=== PATIENT | female | born 1975 | race Caucasian/White ===

== ENCOUNTER 2016-12-23 18:16 | Emergency (ER) | payer OTHER, MEDICAID ==
[2016-12-23 18:23] VITALS: RESP 16
[2016-12-23] MEDS ORDERED: LORazepam 2 MG/ML INJ IVP ONE (18:47)
[2016-12-23] MEDS ORDERED: KETOROLAC 30 MG/1 ML SDV IVP ONE (18:47)
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
[2016-12-23 19:53] VITALS: BP 105/73; PULSE 71; TEMP 98.4; O2SAT 94
== END 2016-12-23 19:50 | disposition home or self-care (01) ==
DX: S16.1XXA Strain of muscle, fascia and tendon at neck level, initial encounter (principal); V49.40XA Driver injured in collision with unspecified motor vehicles in traffic accident, initial encounter; Y92.410 Unspecified street and highway as the place of occurrence of the external cause; Y99.8 Other external cause status; Y93.89 Activity, other specified
CPT/HCPCS: 96374; J1885; J2060

== ENCOUNTER 2017-01-21 17:46 | Emergency (ER) | payer MEDICAID, OTHER ==
--- NOTE | 2017-01-21 18:04 | EDPHY ---
H & P Stated Complaint: FEVER/CHILLS/BODY ACHES HPI/ROS: CHIEF COMPLAINT: Fever, body aches HISTORY OF PRESENT ILLNESS: The patient is a 41 y/o female complaining of fever, sore throat, and body aches since last night. Her symptoms worsened this morning. She was also subjectively febrile and took Advil 1 hour ago. She reports mild abdominal pain , nausea, and right kidney pain, but does not have painful urination, urgency or frequency. She did not receive a flu vaccine this year. Denies cough, shortness of breath, chest pain, vomiting, or bowel complaints, rash. REVIEW OF SYSTEMS: A ten point review of systems was performed and is negative with the exception of the items mentioned in the HPI. Past medical history: Ectopic Dengue fever, 2 years ago Past surgical history: Appendectomy Family history: Noncontributory Social history: Mother at bedside Lives in [place] General Appearance: Alert. Vital signs reviewed. Blood pressure 90/67, afebrile. Eyes: Pupils equal and round, no conjunctival injection, no discharge. Anicteric. ENT, Mouth: Mucous membranes are slightly dry. Oropharyngeal erythema, no exudates. Swallowing easily. Neck: Cervical lymphadenopathy, supple. No meningeal signs. Respiratory: Lungs are clear to auscultation; no wheezes, rales, or rhonchi. Cardiovascular: Regular rate and rhythm; no murmur, rub, or gallop. Gastrointestinal: Abdomen is soft and nontender, no masses or organomegaly, bowel sounds normal. Skin: Warm and dry, no rashes on exposed skin, normal color. Back: Nontender to palpation over the thoracolumbar spine. Mild right CVA tenderness. Extremities: No lower extremity edema, no calf tenderness or swelling. Neurological: Alert and oriented. Moving all four extremities easily and equally. Psychiatric: Normal affect. - Personal History LMP (Females 10-55): 1-7 Days Ago Current Tetanus/Diphtheria Vaccine: Yes - Medical/Surgical History Hx Asthma: No Hx Chronic Respiratory Disease: No Hx Diabetes: No Hx Cardiac Disease: No Hx Renal Disease: No Hx Cirrhosis: No Hx Alcoholism: No Hx HIV/AIDS: No Hx Splenectomy or Spleen Trauma: No Other PMH: ectopic, appy. - Social History Smoking Status: Never smoked Constitutional: Initial Vital Signs Temperature (C) 37.3 C 01/21/17 17:57 Heart Rate 85 01/21/17 17:57 Respiratory Rate 18 01/21/17 17:57 Blood Pressure 90/67 L 01/21/17 17:57 O2 Sat (%) 97 01/21/17 17:57 O2 Delivery Mode Room Air Allergies/Adverse Reactions: oxycodone [Oxycodone] Allergy (Intermediate, Verified 01/21/17 17:56) Itching kiwi Allergy (Mild, Verified 01/21/17 17:56) Home Medications: Medication Instructions Recorded Advil 01/21/17 Oseltamivir Phosphate [Tamiflu 75 75 mg PO BID #9 cap 01/21/17 mg (*)] Medical Decision Making ED Course/Re-evaluation: The patient is a 41 y/o female presenting with fever, body aches, nausea, and a sore throat for one day. On exam she had pharyngeal erythema without exudates and cervical lymphadenopathy. We discussed influenza testing and decided against it, as it will not change course of treatment. 1L IV NS, 650mg PO Tylenol, and Tamiflu PO administered. UA without evidence of infection. I do not think that she has pyelonephritis. 1915: Reassessed patient, she is feeling slightly better after fluids and Tylenol. She will be prescribed Tamiflu. Return precautions provided; patient is comfortable with this plan. This is likely influenza. Differential Diagnosis: Fever in adults including but not limited to pneumonia, urinary tract infection , viral syndrome, and influenza. - Data Points Medications Given: Discontinued Medications Acetaminophen (Tylenol) 650 mg PO EDNOW ONE Stop: 01/21/17 18:15 Last Admin: 01/21/17 18:23 Dose: 650 mg Sodium Chloride (Ns) 1,000 mls @ 0 mls/hr IV EDNOW ONE; Wide Open PRN Reason: Protocol Stop: 01/21/17 18:15 Last Admin: 01/21/17 18:23 Dose: 1,000 mls Oseltamivir Phosphate (Tamiflu) 75 mg PO EDNOW ONE Stop: 01/21/17 18:18 Last Admin: 01/21/17 18:23 Dose: 75 mg Departure - Departure Disposition: Home, Routine, Self-Care Clinical Impression: Influenza Condition: Good Instructions: Influenza (ED) Additional Instructions: Start your Tamiflu prescription tomorrow. Make sure to drink plenty of fluids. Adult Pain & Fever Control: We recommend Acetaminophen (Tylenol) and Ibuprofen (Motrin,Advil) for pain and fever control. When fever is high or pain severe, both drugs can be used at the same time, but at different intervals. Please note the time differences. Your dose is: Acetaminophen [650]mg every 4 to 6 hours Ibuprofen [400]mg every [4-6] hours with food Note: No more than 3000mg of Acetaminophen should be taken in 24 hours (for an adult). Follow up with your primary care physician within 72 hours for reevaluation. Return to the emergency department immediately for high fever, severe headache or neck pain, difficulty breathing, abdominal pain, rash or other worsening of condition. Referrals: [facility] [Outside] - As per Instructions Prescriptions: Oseltamivir Phosphate [Tamiflu 75 mg (*)] 75 mg PO BID #9 cap Report Scribed for: Sharron Ortega Report Scribed by: Bernadette Moseley Date of Report: 01/21/17 Time of Report: 18:05 Physician Review and Approval Statement: 01/21/17 18:04 Portions of this note were transcribed by the medical equipment repair technician. I, Dr. Sharron Ortega, personally performed the history, physical exam, and medical decision- making; and confirmed the accuracy of the information in the transcribed note.
[2017-01-21] MEDS ORDERED: ACETAMINOPHEN 325 MG TAB PO ONE (18:14)
[2017-01-21] MEDS ORDERED: NS 1,000 ML IV ONE (18:14)
[2017-01-21] MEDS ORDERED: OSELTAMIVIR PHOSPHATE 75 MG CAP PO ONE (18:17)
[2017-01-21 19:18] VITALS: BP 92/59; PULSE 82; RESP 16; TEMP 98.2; O2SAT 96
[2017-01-21 19:57] LABS: COLOR COLORLESS; LEUKOCYTE ESTERASE,URINE NEGATIVE (NEGATIVE); NITRITE,URINE NEGATIVE (NEGATIVE)
== END 2017-01-21 19:18 | disposition home or self-care (01) ==
DX: J11.1 Influenza due to unidentified influenza virus with other respiratory manifestations (principal); E86.9 Volume depletion, unspecified